=== PATIENT | female | born 1990 | race Caucasian/White ===

== ENCOUNTER 2016-03-28 23:57 | Emergency (ER) | payer OTHER ==
[~2016-03-28] VITALS: Ht 157.5 cm; Wt 68.5 kg
[~2016-03-28 23:57] MED LIST: IBUP-1542 PO
[2016-03-29 00:32] VITALS: Ht 157.5 cm; Wt 68.5 kg
[2016-03-29] MEDS ORDERED: SOD CHLORIDE 0.9% 500 ML IV STA (01:41)
--- NOTE | 2016-03-29 02:03 | RADRPT ---
PROCEDURE: XR Chest. CLINICAL INDICATION: Abdominal Pain TECHNIQUE: Single frontal view of the chest was obtained COMPARISON: CT and plain film examinations of the chest dated 03/17/2015. 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 This was id entified on the prior examinations dated 03/17/2015. The heart and mediastinum are within normal limits. The lungs are clear. There is no pleural effusion or pneumothorax. IMPRESSION: No acute disease. RPTAT: [facility] Physician Jenaro Date Time Electronically viewed and signed by Physician Jenaro on 03/29/2016 02:02 RS/
[2016-03-29 02:30] LABS: ALBUMIN 3.6 g/dl (3.3-4.9)
[2016-03-29 02:31] LABS: CHLORIDE 103 mmol/L (97-110); POTASSIUM 3.6 mmol/L (3.5-5.1); SODIUM 138 mmol/L (135-144)
[2016-03-29 02:33] LABS: ALBUMIN/GLOBULIN RATIO 1.05; ALKALINE PHOSPHATASE 127 IU/L (42-121); ANION GAP 16 (8-16); ASPARTATE AMINO TRANSFERASE 19 IU/L (15-46); BILIRUBIN,INDIRECT 0.2 mg/dl (0-1.1); BILIRUBIN,TOTAL 0.2 mg/dl (0.2-1.3); CARBON DIOXIDE 23 mmol/L (21-31); CREATININE 0.38 mg/dl (0.44-1.00)
[2016-03-29 02:34] LABS: ALANINE AMINOTRANSFERASE 23 IU/L (13-69); BLOOD UREA NITROGEN 8 mg/dl (7-20); CALCIUM 8.9 mg/dl (8.4-10.2); GLUCOSE 83 mg/dl (70-220)
[2016-03-29 02:43] LABS: BASOPHILS % 0.4 % (0.0-2.0); EOSINOPHILS # 0.1 10^3/ul (0.0-0.5); EOSINOPHILS % 1.1 % (0.0-7.0); HEMATOCRIT 36.5 % (37.0-47.0); HEMOGLOBIN 12.3 g/dl (12.0-16.0); LYMPHOCYTES # 2.1 10^3/ul (0.8-2.9); LYMPHOCYTES % 19.9 % (15.0-51.0); MEAN CORPUSCULAR HGB CONC 33.7 g/dl (32.0-37.0); MEAN PLATELET VOLUME 10.3 fl (7.4-10.4); MONOCYTE # 0.8 10^3/ul (0.3-0.9); MONOCYTES % 7.2 % (0.0-11.0); NEUTROPHIL # 7.5 10^3/ul (1.6-7.5); NEUTROPHILS % 70.6 % (39.0-77.0); PLATELET COUNT 323 10^3/UL (140-440); WHITE BLOOD COUNT 10.7 10^3/ul (4.8-10.8)
[2016-03-29 02:47] LABS: TROPONIN-I < 0.012 ng/ml (0.00-0.12)
--- NOTE | 2016-03-29 04:07 | ERD ---
ER Documentation Chief Complaint Date/Time DATE: 03/29/16 TIME: 04:04 Chief Complaint CP and leg cramps called Dr. Vences and is aware of 30 wks HPI 25-year-old man who is just over 30 weeks by previously, firm normal ultrasound presents with intermittent sharp nonexertional nonradiating chest pain and shortness of breath. She states symptoms are worse at night when she lays flat although during the day while at work sometimes she stands for over 8 hours and feels weak. She denies unilateral calf swelling or redness, no fevers or chills, no cough, no headache or blurry vision, no paresis or paresthesias. Prior to ED arrival she did see her vegetable sorter who cleared her obstetrically. She denies vaginal bleeding or dysuria, no abdominal pain or cramping no vaginal discharge. 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 Anesthesia Reaction: No Hx Neurological Disorder: No Hx Respiratory Disorders: No Hx Cardiac Disorders: Yes (congenital heart disease) Hx Psychiatric Problems: No Hx Miscellaneous Medical Probl: No Hx Alcohol Use: No Hx Substance Use: No Hx Tobacco Use: No Smoking Status: Never smoker FmHx Family History: No diabetes Physical Exam Vitals Vital Signs Date Time Temp Pulse Resp B/P Pulse Ox O2 Delivery O2 Flow Rate FiO2 03/29/16 04:58 99.0 85 14 96/65 99 Room Air 03/29/16 03:00 68 15 92/63 98 Room Air 03/29/16 00:32 98.0 89 18 105/68 98 Physical Exam GENERAL: Well-developed, well-nourished, well-hydrated, in no apparent distress , looks nontoxic in appearance HEENT: Moist mucous membranes, pink conjunctiva, no cervical spine tenderness or step-off deformities, no goiter, no jaundice or icterus, extraocular movements intact without pain. No submandibular induration, and no pharyngeal erythema NEURO: Alert and oriented 3, cranial nerves II through XII intact bilaterally, pupils equal round reactive to light, no focal deficits or facial asymmetry, sensation intact distally Strength 5/5 in upper and lower extremities bilaterally CARDIAC: Regular rate and rhythm, no murmurs rubs or gallops LUNGS: Clear bilaterally no wheezing crackles or stridor ABDOMEN: Soft nontender, no guarding, no rigidity, no rebound, no psoas sign no obturator sign. Normoactive bowel sounds SKIN: Warm and dry to touch, no abrasions, contusions, or hematomas, no lacerations, no ecchymosis, no target lesions, and without ulcers EXTREMITIES: No clubbing cyanosis, 1+ pitting edema to the feet bilaterally, calves are bilaterally symmetrical, no Homans sign, no popliteal cord sign. Distal pulses equal and bilateral PSYCH: Normal affect without agitation or irritability Result Diagram: 03/29/1620403/29/16 0205 Results 24 hrs Laboratory Tests Test 03/29/16 02:05 Alanine Aminotransferase (ALT/SGPT) 23IU/L Albumin 3.6g/dl Albumin/Globulin Ratio 1.05 Alkaline Phosphatase 127IU/L Anion Gap 16 Aspartate Amino Transf (AST/SGOT) 19IU/L Basophils # 0.010^3/ul Basophils % 0.4% Blood Urea Nitrogen 8mg/dl Calcium Level 8.9mg/dl Carbon Dioxide Level 23mmol/L Chloride Level 103mmol/L Creatinine 0.38mg/dl Direct Bilirubin 0.00mg/dl Eosinophils # 0.110^3/ul Eosinophils % 1.1% Globulin 3.40g/dl Glucose Level 83mg/dl Hematocrit 36.5% Hemoglobin 12.3g/dl Indirect Bilirubin 0.2mg/dl Lipase 76U/L Lymphocytes # 2.110^3/ul Lymphocytes % 19.9% Mean Corpuscular Hemoglobin 30.0pg Mean Corpuscular Hemoglobin Concent 33.7g/dl Mean Corpuscular Volume 89.0fl Mean Platelet Volume 10.3fl Monocytes # 0.810^3/ul Monocytes % 7.2% Neutrophils # 7.510^3/ul Neutrophils % 70.6% Nucleated Red Blood Cells # 0.010^3/ul Nucleated Red Blood Cells % 0.0/100WBC Platelet Count 16204^3/UL Potassium Level 3.6mmol/L Red Blood Count 4.1010^6/ul Red Cell Distribution Width 12.0% Sodium Level 138mmol/L Total Bilirubin 0.2mg/dl Total Protein 7.0g/dl Troponin I < 0.012ng/ml White Blood Count 10.710^3/ul Current Medications Medications (Trade) Dose Ordered Sig/Gary Route PRN Reason Start Time Stop Time Status Last Admin Dose Admin Sodium Chloride (NS) 500 ml @ 500 mls/hr Q1H STAT IV 03/29/16 01:41 03/29/16 02:40 DC 03/29/16 02:10 Procedures/MDM IV line was established patient was placed on rn cardiac rehab rhythm strip revealed a sinus rhythm at about 80 bpm with upright P and T waves. Patient was afebrile. I administered 500 cc of normal saline intravenously. EKG performed, read by me: 79 bpm, normal sinus rhythm, normal axis, no acute ST segment changes, narrow QRS complex, with good R-wave progression in precordial leads. Chest X-ray 1V Interpreted by me: Soft Tissue: No acute abnormalities Bones: No acute abnormalities Mediastinum/Cardiac Silhouette/Lungs: No acute abnormalities Patient's symptoms did improve and they are fairly common in third trimester , especially when lying supine as the fetus impinges the IVC causing shortness of breath palpitations, and intermittent chest pain. I do not suspect that her anomalous pulmonary vein anastomosis to the IVC this causing any serious issue. Patient has been cleared from the emergency department and will follow up with her vegetable sorter later today. Patient feels much better at this time, and vital signs are normal, symptoms have improved. I did give strict instructions to return to the ED if symptoms continue or worsen, patient will otherwise follow-up with primary care physician. Patient understood instructions and agreed to plan. Departure Diagnosis: Primary Impression: Third trimester Additional Impressions: Chest pain Chest pain type: unspecified Qualified Code: R07.9 - Chest pain, unspecified type Anomalous pulmonary venous drainage to abdominal inferior vena cava Condition: Good VERONICA LIZAMA MD Mar 29, 2016 04:07
[2016-03-29 04:58] VITALS: BP 96/65; PULSE 85; RESP 14; TEMP 99
== END 2016-03-29 04:58 | disposition home or self-care (01) ==
LOC: E/R 23:57
DX: O99.89 Other specified diseases and conditions complicating pregnancy, childbirth and the puerperium (principal); R07.9 Chest pain, unspecified; Q26.9 Congenital malformation of great vein, unspecified; Z3A.30 30 weeks gestation of pregnancy
CPT/HCPCS: 36415; 71010; 80053; 83690; 84484; 85025; 93005; 96360; 96361; 99284; J7040

== ENCOUNTER 2016-05-25 02:31 | Inpatient (IN) | payer OTHER ==
[~2016-05-25] VITALS: Ht 162.6 cm; Wt 73.5 kg
[2016-05-25] VITALS (8 sets, daily range): BP systolic 80–110; BP diastolic 38–67; PULSE 69–92; RESP 15–20; Ht 162.6 cm; Wt 73.5 kg
[2016-05-25] MEDS ORDERED: OXYTOCIN 30 UNITS/LR 500 ML IV SCH ×3 (03:30→16:30)
[2016-05-25] MEDS ORDERED: MISOPROSTOL 200 MCG TAB PR PRN (03:30)
[2016-05-25] MEDS ORDERED: OXYTOCIN 30 UNITS/LR 500 ML IV PRN (03:30)
[2016-05-25] MEDS ORDERED: ACETAMINOPHEN/CODEINE #3 TAB PO PRN (03:30)
[2016-05-25] MEDS ORDERED: LIDOCAINE 1% (MPF) 30 ML INJ INJ PRN (03:30)
[2016-05-25] MEDS ORDERED: LACTATED RINGER'S 1,000 ML IV PRN (03:30)
[2016-05-25] MEDS ORDERED: METHYLERGONOVINE 0.2 MG INJ IM PRN (03:30)
[2016-05-25] MEDS ORDERED: BUTORPHANOL 2 MG INJ IV PRN ×2 (03:30)
[2016-05-25] MEDS ORDERED: AMPICILLIN 2 GM/NS (PMX) 100 ML IV ONE (03:30)
[2016-05-25] MEDS ORDERED: CARBOPROST 250 MCG INJ IM PRN (03:30)
[2016-05-25] MEDS ORDERED: IBUPROFEN 600 MG TAB PO PRN (03:30)
[2016-05-25 03:56] LABS: ADD SCAN DIFF NO
[2016-05-25 04:12] LABS: BASOPHILS % 0.2 % (0.0-2.0); EOSINOPHILS % 0.1 % (0.0-7.0); HEMATOCRIT 35.1 % (37.0-47.0); HEMOGLOBIN 11.5 g/dl (12.0-16.0); LYMPHOCYTES # 1.2 10^3/ul (0.8-2.9); LYMPHOCYTES % 9.7 % (15.0-51.0); MEAN CORPUSCULAR HEMOGLOBIN 28.7 pg (29.0-33.0); MEAN CORPUSCULAR HGB CONC 32.8 g/dl (32.0-37.0); MEAN CORPUSCULAR VOLUME 87.5 fl (82.0-101.0); MEAN PLATELET VOLUME 10.9 fl (7.4-10.4); MONOCYTE # 0.6 10^3/ul (0.3-0.9); NEUTROPHIL # 10.6 10^3/ul (1.6-7.5); NEUTROPHILS % 84.6 % (39.0-77.0); PLATELET COUNT 324 10^3/UL (140-415); RED BLOOD COUNT 4.01 10^6/ul (4.20-5.40); RED CELL DISTRIBUTION WIDTH 12.6 % (11.5-14.5); WHITE BLOOD COUNT 12.5 10^3/ul (4.8-10.8)
--- NOTE | 2016-05-25 04:50 | RADRPT ---
PROCEDURE: Obstetrical ultrasound, limited. CLINICAL INDICATION: Pelvic pain. TECHNIQUE: Multiple sonographic images of the pelvis were obtained using transabdominal technique . Images were obtained with lockhart scale and color Doppler. The images were reviewed on a PACS works tation. COMPARISON: No prior studies are available for comparison. FINDINGS: There is a single living intrauterine gestation with the fetus in a vertex presentation. hear t tones of 150 beats per minute are identified. The placenta is left lateral in location, grade 2. There is no evidence of placenta previa or abruption. Measurements were made in order to determine age. The results are as follows: BPD =8.60 cm HC =32.37 cm AC =31.16 cm FL =7.21 cm. Estimated gestational age of approximately 35 weeks and 6 days. The estimated date of delivery is 06/23/2016. The EFW = 2744 +/- 412 grams. Estimated weight percentage equals 4.6%. IMPRESSION: Single viable intrauterine gestation of approximately 35 weeks and 6 days, with an ultrasound DUTCH of 06/23/2016. .Hollis Self MD, MD Date Time Electronically viewed and signed by .Hollis Self MD, MD on 05/25/2016 04:49 .T/
[2016-05-25] MEDS: LACTATED RINGER'S 1,000 ML IV SCH ×3 (04:55→12:49)
[2016-05-25] MEDS ORDERED: FENTAnyl 2MCG/ML-ROPIV 0.2% 100 ML ONE (05:18)
[2016-05-25 05:28] LABS: INR 0.95; PROTIME 12.7 Sec (12.2-14.2)
[2016-05-25 05:29] LABS: PARTIAL THROMBOPLASTIN TIME 27.4 Sec (25.0-35.0)
--- NOTE | 2016-05-25 07:02 | HP ---
Date/Time of Note Date/Time of Note DATE: 05/25/16 TIME: 06:42 OB - History Hx of Present Free Text/Dictation 25 y.o. G1 with an IUP at 39 w2d in labor and with a history of maternal Scimitar syndrome. Pt started donald at 2200 05/24. She is 90%/3/-3 on admit. Pt was 50%/1/-3 24 hours ago at [facility]. Pt has been traveling twice a week to [facility] (?!) due to her lung/heart anomaly but did not feel up to the [address]. Pt says she has been going there x 4 weeks and was told by Dr Lagunas ( a perinatologist or clean out driller helper?) that she was OK to deliver vaginally with Valsalva and that is referenced in a note written by a M fellow yesterday morning but we do not have the actual note.Pt denies any chest pain or SOB at this time. Last pt ECHO 05/05 showed: normal left ventricular systolic function, EF 65%, TOTAL anomalous pulmonary venous return with pulmonary waveform tracings entering the IVC. Right atrium is mild-moderately dilated and there was normal right ventricular size and systolic function. Normal diastolic LV function. EKG done yesterday AM normal. PMHx: maternal Scimitar syndrome. PSHx: masses removed from the left arm age 8. Social Hx: negative. NKDA Chief Complaint: Labor. Maternal Scimitar syndrome. Last Menstrual Period: Aug 23, 2015 Estimated Due Date: May 30, 2016 : 1 Para: 0 Spontaneous : 0 Therapeutic : 0 Ultrasounds: Normal mid trimester US Obstetrical Complications: None Medical Complications: Cardiovascular (Scimitar syndrome.) Past Family/Social History * Past Medical, Surgical, Family and Obstetric Histories reviewed from chart. Blood Type: A+ Rubella: immune RPR/VDRL: Negative GBS Status: Negative HBsAG: Negative OB Admission Exam Vital Signs Vital Signs Vital Signs Date Time Temp Pulse Resp B/P Pulse Ox O2 Delivery O2 Flow Rate FiO2 05/25/16 02:49 98.3 81 20 110/60 Room Air Physical Exam HEENT: WNL Heart: Rhythm Normal Lungs: Clear Extremities: Normal Reflexes: Normal Cervical Dilatation: 3cm Effacement: Other (90%) Station: -3 Membranes: Intact Heart Rate: 140's Accelerations: Accelerations Present Decelerations: No Decelerations Varibility: Moderate Contractions on Admission: < 5 Minutes Apart Last 72 hours Lab Results CBC & BMP 05/25/16 03:40 OB Assessment/Plan Reason for admission: active labor Other Assessment: Maternal Scimitar syndrome. Plan: Expectant Management Other plan: Perinatology consult. Need to get actual report written by Dr Lagunas at [facility] who has evaluated this pt the most. Baby/Mom OK at present but need to evaluate for ability to safely deliver at [facility]. Mom has epidural to comfortable, non-stressed. ELVIRA ALMARAZ MD May 25, 2016 06:56
[2016-05-25 07:42] LABS: BARBITURATES Negative (NEGATIVE); BENZODIAZEPINES Negative (NEGATIVE); CANNABINOIDS Negative (NEGATIVE); COCAINE Negative (NEGATIVE); OPIATES Negative (NEGATIVE)
[2016-05-25] MEDS: AMPICILLIN 1 GM/NS (PMX) 50 ML IV SCH ×3 (07:51→15:30)
[2016-05-25] MEDS ORDERED: OXYTOCIN 10 UNIT INJ IM ONE (11:00)
[2016-05-25 11:19] LABS: ADD UMIC YES; URINE BILIRUBIN (Dip) NEGATIVE (NEGATIVE); URINE BLOOD (Dip) 1+ (NEGATIVE); URINE COLOR YELLOW (YELLOW); URINE GLUCOSE (Dip) NEGATIVE (NEGATIVE); URINE KETONES (Dip) 40 (NEGATIVE); URINE LEUKOCYTE ESTERASE (Dip) NEGATIVE (NEGATIVE); URINE NITRITE (Dip) NEGATIVE (NEGATIVE); URINE TOTAL PROTEIN (Dip) 2+ (NEGATIVE); URINE UROBILINOGEN (Dip) 1.0 E.U./dL (0.1-1.0)
[2016-05-25 11:26] LABS: ALBUMIN 3.6 g/dl (3.3-4.9)
[2016-05-25 11:27] LABS: POTASSIUM 3.7 mmol/L (3.5-5.1)
[2016-05-25 11:29] LABS: BILIRUBIN,INDIRECT 0.3 mg/dl (0-1.1); BILIRUBIN,TOTAL 0.3 mg/dl (0.2-1.3); CALCIUM 8.8 mg/dl (8.4-10.2); CREATININE 0.42 mg/dl (0.44-1.00); TOTAL PROTEIN 7.2 g/dl (6.1-8.1)
[2016-05-25 11:32] LABS: MUCUS,URINE MODERATE
[2016-05-25] MEDS ORDERED: ONDANSETRON 4 MG INJ IV PRN (13:00)
[2016-05-25] MEDS ORDERED: NALOXONE (0.4 MG/ML) INJ IV PRN (13:00)
[2016-05-25] MEDS ORDERED: FENTAnyl 2MCG/ML-ROPIV 0.2% 100 ML BAG EPI SCH (13:00)
[2016-05-25] MEDS ORDERED: EPHEDrine SULFATE 50 MG/5 ML SYG IV PRN (13:00)
--- NOTE | 2016-05-25 13:34 | OPR ---
DATE OF OPERATION: NEONATOLOGY CONSULTATION REQUESTING PHYSICIAN: Dr. Grullon, ER panel REASON FOR CONSULTATION: The mother has scimitar syndrome which is partial abnormal pulmonary venou s return syndrome. Her gestation is 39 and 2/7 weeks. The baby's estimated weight is 2744 g. There is no echocardiogram on file of the baby. Abnormal pulmonary venous return. If it is total abnormal return, of course is in the daisy gency, requiring management and transferred to a pediatric cardiology and surgery center. If it is an abnormal partial venous return, this may be asymptomatic or with limited symptoms or totally asym ptomatic as it also was for many years in his mother. Evaluation in the delivery room and shortly after with pulse oximetry is indicated, and a ches t x-ray and an echocardiogram can be done. If the baby is stable in the delivery room, no immediate need for admission to the intensive care is needed. I have spoken extensively to the parents and they understand the approach and plans, and they agree with the taken and plan. Thank you very much for consulting me and alerting me on this baby's possible condition. Dictated By: REJI CAMPUZANO/JANA Conf#: [id number] DID#: [id number]
--- NOTE | 2016-05-25 15:08 | CONS ---
Date/Time of Note Date/Time of Note DATE: 05/25/16 TIME: 14:57 Assessment/Plan Assessment/Plan Chief Complaint/Hosp Course 1. 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 IUP @ 39+ weeks: in active labor RECOMMENDATIONS: * Continue routine active labor mgt as indicated * Agree with limiting fluids as much as safely possible * Cardiology consultation obtained with Dr Roberts to assist in mgt * Telemetry obs post delivery * Very low fluid bolus 250-500mls of NS for low urine output * Supportive care Thanks for the Consult. We will follow with you. Problems: Consultation Date/Type/Reason Admit Date/Time May 25, 2016 at 03:10 Date of Consultation: May 25, 2016 Type of Consultation: Medical Reason for Consultation congenital heart disease Referring Provider: TAD SANTIAGO MD Hx of Present Illness 25 yo F G1 with a PMH of Scimitar's Syndrome managed at [facility] who came in via ER in active labor. WE are consulted for medical mgt and followup 2/2 her chronic heart condition. Patient reports her only symptoms are those of airway inflammation intermittently diann in the summer months as evidenced by chest pain , SOB and wheezing and these symptoms are usually relieved with the use of bronchodilator therapy. She hasn't had an episode in months. She denies active CP at this time, denies headaches, nausea or vomiting. has never had CHF or arrhythmias associated with this to her knowledge. 12 point review if systems was done and pertinent findings are as noted. Respiratory: no complaints Cardiovascular: no complaints Gastrointestinal: no complaints Genitourinary: no complaints Musculoskeletal: no complaints Skin: no complaints Neurologic: No confusion, No dizziness, No focal-weakness, No headache, No seizure, No syncope Psychological: nl mood/affect Social History Smoking Status: Never smoker Exam/Review of Systems Vital Signs Vitals VS - Last 72 Hours, by Label Date Time Temp Pulse Resp B/P Pulse Ox O2 Delivery O2 Flow Rate FiO2 05/25/16 02:49 98.3 81 20 110/60 Room Air Vital Signs Date Time Temp Pulse Resp B/P Pulse Ox O2 Delivery O2 Flow Rate FiO2 05/25/16 02:49 98.3 81 20 110/60 Room Air Intake and Output 05/24/16 05/24/16 05/25/16 15:00 23:00 07:00 Intake Total 650 ml Balance 650 ml Exam GENERAL: Patient is alert, oriented x 3, in no apparent distress; does not appear acutely or chronically ill. Patient is able to sit up unassisted.Patient makes good eye contact, is conversant, interactive, coherent. Patient appears calm and comfortable and is able to follow commands. HEENT: Oropharynx is clear. There is no carotid bruit, no masses. Patient's pupils are equal, round and reactive to light bilaterally. Extraocular motions are intact. There is no scleral icterus. There is no facial asymmetry. NECK: Supple. LUNGS: Clear to auscultation bilaterally with good air entry. No Wheezes or crackles. HEART: S1, S2. ?Systolic murmur 2/6. Regular rate and rhythm. ABDOMEN: gravid uterus connected to monitor / NT BACK: no costovertebral angle tenderness. GENITOURINARY: Deferred. EXTREMITIES: No edema. There is no cyanosis, clubbing. There are 2+ pulses bilaterally distally. NEUROLOGIC: The patient has no lateralizing signs. Cranial nerves II-XII are intact. SKIN: Otherwise, unremarkable. Results Result Diagram: 05/25/16 0340 05/25/16 0340 Results 24 hrs Laboratory Tests Test 05/25/16 03:40 05/25/16 04:05 05/25/16 06:50 White Blood Count 12.5 H Red Blood Count 4.01 L Hemoglobin 11.5 L Hematocrit 35.1 L Mean Corpuscular Volume 87.5 Mean Corpuscular Hemoglobin 28.7 L Mean Corpuscular Hemoglobin Concent 32.8 Red Cell Distribution Width 12.6 Platelet Count 324 Mean Platelet Volume 10.9 H Neutrophils % 84.6 H Lymphocytes % 9.7 L Monocytes % 5.0 Eosinophils % 0.1 Basophils % 0.2 Nucleated Red Blood Cells % 0.0 Neutrophils # 10.6 H Lymphocytes # 1.2 Monocytes # 0.6 Eosinophils # 0.0 Basophils # 0.0 Nucleated Red Blood Cells # 0.0 Sodium Level 137 Potassium Level 3.7 Chloride Level 104 Carbon Dioxide Level 22 Anion Gap 15 Blood Urea Nitrogen 10 Creatinine 0.42 L Glucose Level 98 Calcium Level 8.8 Total Bilirubin 0.3 Direct Bilirubin 0.00 Indirect Bilirubin 0.3 Aspartate Amino Transf (AST/SGOT) 21 Alanine Aminotransferase (ALT/SGPT) 16 Alkaline Phosphatase 170 H Total Protein 7.2 Albumin 3.6 Globulin 3.60 H Albumin/Globulin Ratio 1.00 Hepatitis B Surface Antigen NEGATIVE HIV (1&2) Antibody NEGATIVE Prothrombin Time 12.7 Prothrombin Time Ratio 1.0 INR International Normalized Ratio 0.95 Activated Partial Thromboplast Time 27.4 Urine Color YELLOW Urine Clarity HAZY Urine pH 6.5 Urine Specific [place] 1.025 Urine Ketones 40 Urine Nitrite NEGATIVE Urine Bilirubin NEGATIVE Urine Urobilinogen 1.0 E.U./dL Urine Leukocyte Esterase NEGATIVE Urine Microscopic RBC 10-25 Urine Microscopic WBC 0-2 Urine Mucus MODERATE Urine Hemoglobin 1+ H Urine Glucose NEGATIVE Urine Total Protein 2+ H Urine Opiates Screen Negative Urine Barbiturates Negative Urine Amphetamines Screen Negative Urine Benzodiazepines Screen Negative Urine Cocaine Screen Negative Urine Cannabinoids Negative Medications Medications Current Medications Lactated Ringer's 1,000 ml @ 125 mls/hr Q8H IV Last administered on 05/25/16 12:49; Admin Dose 125 MLS/HR; Start 05/25/16 at 03:20 Ampicillin (Ampicillin 1 Gm/ NS (Pmx)) 50 ml @ 100 mls/hr Q4H IV Last administered on 05/25/16 07:51; Admin Dose 100 MLS/HR; Start 05/25/16 at 07:30 Butorphanol Tartrate (Stadol) 1 mg Q2H PRN IV PAIN; Start 05/25/16 at 03:30 Butorphanol Tartrate (Stadol) 2 mg Q2H PRN IV PAIN; Start 05/25/16 at 03:30 Lidocaine 30 ml 30 ml ONCE PRN INJ EPISIOTOMY/TEARING; Start 05/25/16 at 03:30 Oxytocin/Lactated Ringer's 500 ml @ 125 mls/hr ONCE IV ; Start 05/25/16 at 03: 30 Ibuprofen (Motrin) 600 mg ONCE PRN PO Mild Pain (Pain Score 1-3); Start at 03:30 Acetaminophen/ Codeine Phosphate 2 tab 2 tab ONCE PRN PO Moderate to Severe Pain (4-10); Start 05/25/16 at 03:30 Lactated Ringer's 1,000 ml @ 2,000 mls/hr Q30M PRN IV PRE-EPIDURAL BOLUS; Start 05/25/16 at 03:30 Oxytocin/Lactated Ringer's 500 ml @ 0 mls/hr ONCE PRN IV For Hemorrhage Management; Start 05/25/16 at 03:30 Methylergonovine Maleate (Methergine) 0.2 mg ONCE PRN IM VAGINAL BLEEDING; Start 05/25/16 at 03:30 Carboprost Tromethamine (Hemabate) 250 mcg ONCE PRN IM VAGINAL BLEEDING; Start 05/25/16 at 03:30 Misoprostol (Cytotec) 1,000 mcg ONCE PRN MS VAGINAL BLEEDING; Start 05/25/16 at 03:30 Naloxone HCl (Narcan) 0.1 mg Q2M PRN IV FOR RESP RATE 8 OR LESS; Start at 13:00; Stop 05/26/16 at 12:59 Ondansetron HCl (Zofran Inj) 4 mg Q6H PRN IV NAUSEA AND/OR VOMITING; Start at 13:00; Stop 05/26/16 at 12:59 Ephedrine Sulfate 5 mg PRN PRN IV BLOOD PRESSURE SUPPORT; Start 05/25/16 at 13: 00 Procedures Procedures Echo : * normal left ventricular systolic function, * EF 65% * TOTAL anomalous pulmonary venous return with pulmonary waveform tracings entering the IVC. * Right atrium is mild-moderately dilated and there was normal right ventricular size and systolic function. * Normal diastolic LV function. EKG done yesterday AM normal. DAMON AKHTAR May 25, 2016 15:08
[2016-05-25 18:05] LABS: AADO2 Cord Arterial 73.1 mmHg; Arterial Cord Blood pCO2 54.7 mmHG (25-50); CBA Base Excess -2.6 mmol/L; CBA Oxygen Sat 15.5 mmHG; CBA Total Hemglobin 16.1 g/dl; Cord Blood Arterial pO2 11.1 mmHG (15.0-45.0); Fraction OxyHgb Cord Arterial 15.1 %; MODE ROOM AIR; MetHgb Cord Arterial 2.1 %; Sample Type CBA
[2016-05-25 18:08] LABS: CBV Base Excess -3.9 mmol/L; CBV COHb 1.5 %; CBV Oxygen Sat 42.4 mmHG; CBV Total Hemglobin 15.3 g/dl; Cord Blood Venous AADO2 75.1 mmHg; Cord Blood Venous pO2 19.8 mmHG (15.0-45.0); Fraction OxyHgb Cord Venous 41.1 %; MODE ROOM AIR; MetHgb Cord Venous 1.6 %; Sample Type CBV
--- NOTE | 2016-05-25 18:40 | LDN ---
Date/Time of Note Date/Time of Note DATE: 05/25/16 TIME: 18:37 Delivery Summary pt pushed and vacuum applied to avoid excessive maternal pushing. infant delivered and head delivered without complications. CAN loose x1. cord gases and cord blood taken. placenta delivered withour complications. mom stable to icu. Assisted Vaginal Delivery: Vacuum Placenta Delivered: Spontaneously Meconium: none Episiotomy: No Laceration repair: 2nd degree lacerations repaired with 2-0 vicryl Anesthesia type: Epidural Estimated blood loss: 350 Sponge & Needle done & correct: Yes All needle counts correct: Yes Any foreign bodies felt in the: No Problems: TAD SANTIAGO MD May 25, 2016 18:39
--- NOTE | 2016-05-25 20:24 | CONS ---
DATE OF ADMISSION: 05/25/2016 DATE OF CONSULTATION: 05/25/2016 TYPE OF CONSULTATION: Cardiology. REASON FOR CONSULTATION: History of congenital heart disease, history of scimitar syndrome. CHIEF COMPLAINT: . HISTORY OF PRESENT ILLNESS: Thank you for this referral. History obtained from the patient, danika ellington review of the chart, review of the old chart, including the patient's old echocardiogram reviewe d from [facility], and discussion with multiple physicians and staff, including Dr. Akhtar. This 25-year-old female with history of scimitar syndrome, apparently diagnosed 4 years ago by her report, managed at [facility] who came to emergency room because of active labor. The patient we were kindly asked to evalua te because of her congenital heart disease. The patient at this point denies any chest pain or pres sure to me. She has been admitted and will be transferred to ICU post-delivery. She said when she was young she was having chest, difficulty breathing when she was exercising, up to 4 years ago when she was diagnosed with the scimitar syndrome. PAST MEDICAL HISTORY: As above. SOCIAL HISTORY: Does not smoke. ALLERGIES: NO KNOWN DRUG ALLERGIES. MEDICATIONS: As per medical reconciliation, reviewed. FAMILY HISTORY: Denies any history of early coronary artery disease. REVIEW OF SYSTEMS: As above mentioned. PHYSICAL EXAMINATION: VITAL SIGNS: Temperature 98.3, heart rate of 69, blood pressure 101/66, respiration rate of 15, sat urating 99%. HEENT: Normocephalic, atraumatic. No acute distress. Pupils equal and round. CARDIOVASCULAR: Regular rate and rhythm with systolic murmur. PULMONARY: With no wheezes anteriorly. GASTROINTESTINAL: Mild tenderness to palpation. No rebound or guarding. EXTREMITIES: No significant edema. NEUROLOGIC: Awake, responds appropriately. PSYCHIATRIC: Appears to be calm and pleasant. LABORATORY DATA: WBC of 12.5, hemoglobin 11.5, platelets of 324. Sodium 137, potassium 3.7, BUN of 10, creatinine 0.42, glucose of 98. Albumin is 3.6. Review of the old chart showed the patient had an echocardiogram done on 05/05/2016 at [facility], which sh owed normal LV size and systolic function, ejection fraction of 65%. There is a total anomalous pul monary venous return with pulmonary waveform tracing entering into the IVC. The right atrium is mil d to moderately dilated and normal right ventricular size and systolic function. Normal to diastoli c LV systolic function. Estimated right ventricular systolic pressure was normal at 22 mmHg. ASSESSMENT AND PLAN: 1. Scimitar syndrome. 2. History of class 2 congestive heart failure, currently appears to be well compensated. 3. , status post delivery now. 4. Anemia. RECOMMENDATIONS: Will continue to monitor in ICU overnight. At this time, patient currently appear s to be asymptomatic. Post-vaginal delivery care as per LIFT MANAGER to be continued. More than 38 minutes of critical care time was spent in management of this patient excluding any pro cedures. Dictated By: KENNY MADDEN MD AV/NTS Conf#: [id number] DID#: [id number] CC: ELVIRA ALMARAZ MD; DAMON AKHTAR MD;*EndCC*
[2016-05-26] VITALS (18 sets, daily range): BP systolic 84–110; BP diastolic 52–75; PULSE 70–91; RESP 15–22
[2016-05-26] MEDS ORDERED: WITCH HAZEL/GLYCERIN PAD PR PRN (12:00)
--- NOTE | 2016-05-26 12:41 | PN ---
Date/Time of Note Date/Time of Note DATE: 05/26/16 TIME: 12:38 Assessment/Plan VTE Prophylaxis VTE Prophylaxis Intervention: SCD's Lines/Catheters IV Catheter Type (from Nrsg): Peripheral IV Urinary Cath still in place: Yes Reason Cath still needed: other (indicate) Assessment/Plan Chief Complaint/Hosp Course 1. 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 IUP @ 39+ weeks s/p successful delivery (Post delivery day 1) RECOMMENDATIONS: * Continue routine post delivery mgt * OK to transfer back to post floor if ok with cardio * Supportive care Thanks for the Consult. We will follow with you. Problems: Subjective 24 Hr Interval Summary Free Text/Dictation * doing well * Mild abd pain from delivery * No telemetry issues * no labs today yet Exam/Review of Systems Vital Signs Vitals Vital Signs Date Time Temp Pulse Resp B/P Pulse Ox O2 Delivery O2 Flow Rate FiO2 05/26/16 08:00 72 05/26/16 07:00 98.2 17 84/53 100 Room Air Intake and Output 05/25/16 05/25/16 05/26/16 15:00 23:00 07:00 Intake Total 1120 ml 503 ml 497 ml Output Total 800 ml 100 ml Balance 1120 ml -297 ml 397 ml Exam GENERAL: Patient is alert, oriented x 3, in no apparent distress; does not appear acutely or chronically ill. Patient is able to sit up unassisted.Patient makes good eye contact, is conversant, interactive, coherent. Patient appears calm and comfortable and is able to follow commands. HEENT: Oropharynx is clear. There is no carotid bruit, no masses. Patient's pupils are equal, round and reactive to light bilaterally. Extraocular motions are intact. There is no scleral icterus. There is no facial asymmetry. NECK: Supple. LUNGS: Clear to auscultation bilaterally with good air entry. No Wheezes or crackles. HEART: S1, S2. ?Systolic murmur 2/6. Regular rate and rhythm. ABDOMEN: soft, still sore from recent delivery, + BS BACK: no costovertebral angle tenderness. GENITOURINARY: Deferred. EXTREMITIES: No edema. There is no cyanosis, clubbing. There are 2+ pulses bilaterally distally. NEUROLOGIC: The patient has no lateralizing signs. Cranial nerves II-XII are intact. SKIN: Otherwise, unremarkable. Results Result Diagram: 05/25/16 0340 05/25/16 0340 Results 24 hrs Laboratory Tests Test 05/25/16 18:00 05/25/16 18:02 Blood Gas Specimen Source CBA CBV Arterial Blood Date Drawn 05/25/2016 5:55:28 PM 05/25/2016 5:55:00 PM Arterial Blood Gas Puncture Site CORD CORD Jeff Test N/A N/A Cord Blood Carboxyhemoglobin 0.3 1.5 Cord Arterial Blood pH 7.280 Cord Arterial Blood PCO2 54.7 H Cord Arterial Blood PO2 11.1 L Cord Arterial Blood HCO3 25.1 Cord Arterial Blood Base Excess -2.6 POC Cord Arterial Blood O2 Sat 15.5 Cord Arterial Blood Hemoglobin 16.1 Cord Arterial Blood Oxyhemoglobin 15.1 Cord Arterial Blood Methemoglobin 2.1 Blood Gas A-a O2 Differential 73.1 75.1 Blood Gas Temperature 37.0 37.0 Blood Gas Modality ROOM AIR ROOM AIR FiO2 21.0 21.0 Blood Gas Critical Value Read Back Teja LIVE RN Blood Gas Notified Whom CHUNG PADGETT WILLIAM Blood Gas Notified Time 05/25/2016 6:05:16 PM 05/25/2016 6:08:33 PM Cord Venous Blood pH 7.310 Cord Venous Blood PCO2 45.8 Cord Venous Blood PO2 19.8 Cord Venous Blood HCO3 22.5 Cord Venous Blood Base Excess -3.9 POC Cord Venous Blood Oxygen Sat 42.4 Cord Venous Blood Hemoglobin 15.3 Cord Venous Blood Oxyhemoglobin 41.1 Cord Venous Blood Methemoglobin 1.6 Medications Medications Current Medications Butorphanol Tartrate (Stadol) 1 mg Q2H PRN IV PAIN; Start 05/25/16 at 03:30 Butorphanol Tartrate (Stadol) 2 mg Q2H PRN IV PAIN; Start 05/25/16 at 03:30 Ibuprofen (Motrin) 600 mg ONCE PRN PO Mild Pain (Pain Score 1-3); Start at 03:30 Acetaminophen/ Codeine Phosphate (Tylenol No.3) 2 tab ONCE PRN PO Moderate to Severe Pain (4-10); Start 05/25/16 at 03:30 Methylergonovine Maleate (Methergine) 0.2 mg ONCE PRN IM VAGINAL BLEEDING; Start 05/25/16 at 03:30 Carboprost Tromethamine (Hemabate) 250 mcg ONCE PRN IM VAGINAL BLEEDING; Start 05/25/16 at 03:30 Ondansetron HCl (Zofran Inj) 4 mg Q6H PRN IV NAUSEA AND/OR VOMITING; Start at 13:00; Stop 05/26/16 at 12:59 DAMON AKHTAR May 26, 2016 12:41
[2016-05-26 12:56] LABS: ADD SCAN DIFF NO
[2016-05-26 12:58] LABS: BASOPHILS % 0.2 % (0.0-2.0); EOSINOPHILS # 0.1 10^3/ul (0.0-0.5); EOSINOPHILS % 0.8 % (0.0-7.0); HEMATOCRIT 31.4 % (37.0-47.0); HEMOGLOBIN 10.6 g/dl (12.0-16.0); LYMPHOCYTES % 14.2 % (15.0-51.0); MEAN CORPUSCULAR HEMOGLOBIN 29.6 pg (29.0-33.0); MEAN CORPUSCULAR HGB CONC 33.8 g/dl (32.0-37.0); MEAN CORPUSCULAR VOLUME 87.7 fl (82.0-101.0); MEAN PLATELET VOLUME 10.4 fl (7.4-10.4); MONOCYTE # 0.6 10^3/ul (0.3-0.9); MONOCYTES % 3.8 % (0.0-11.0); NEUTROPHIL # 11.5 10^3/ul (1.6-7.5); NEUTROPHILS % 80.6 % (39.0-77.0); PLATELET COUNT 257 10^3/UL (140-415); RED BLOOD COUNT 3.58 10^6/ul (4.20-5.40); RED CELL DISTRIBUTION WIDTH 12.9 % (11.5-14.5); WHITE BLOOD COUNT 14.3 10^3/ul (4.8-10.8)
[2016-05-26 13:09] LABS: POTASSIUM 3.5 mmol/L (3.5-5.1)
[2016-05-26 13:11] LABS: BILIRUBIN,INDIRECT 0.3 mg/dl (0-1.1); BILIRUBIN,TOTAL 0.3 mg/dl (0.2-1.3); CREATININE 0.41 mg/dl (0.44-1.00); TOTAL PROTEIN 6.3 g/dl (6.1-8.1)
[2016-05-26 13:12] LABS: CALCIUM 8.3 mg/dl (8.4-10.2); MAGNESIUM 1.8 mg/dl (1.7-2.5)
[2016-05-26 13:16] LABS: ALBUMIN/GLOBULIN RATIO 0.9
--- NOTE | 2016-05-26 15:57 | PN ---
DATE: 05/26/2016 CARDIOLOGY FOLLOWUP SUBJECTIVE: Discussed with the staff. The patient is feeling better. No chest pain or pressure. No palpitation. Breathing fine. Wants to go back to the regular OB floor so she can be with her ba by. MEDICATIONS: Reviewed. PHYSICAL EXAMINATION: VITAL SIGNS: Temperature 98.4, heart rate 79, blood pressure 98/60, respirations 19, saturating 100 %. HEENT: Normocephalic, atraumatic. No acute distress. CARDIOVASCULAR: Regular rate and rhythm. PULMONARY: No wheezes. GASTROINTESTINAL: Soft, mild tenderness to palpation. EXTREMITIES: No edema. NEUROLOGIC: Awake and alert. LABORATORY DATA: WBC 14.3, hemoglobin 10.6, platelets 257. Sodium 135, potassium 3.5, BUN 9, creat inine 0.41, glucose 112. ASSESSMENT AND PLAN: 1. Scimitar syndrome. 2. History of congestive heart failure class II, currently stable, asymptomatic. 3. status post delivery now. 4. Anemia appears to be stable. RECOMMENDATIONS: The patient appears to be stable to be transferred out of ICU. Postop care as per CARDIAC CATHETERIZATION TECHNOLOGIST. We will follow up p.r.n. Dictated By: KENNY CAMPUZANO/JANA Conf#: [id number] DID#: [id number]
[2016-05-26 17:02] LABS: RUBELLA ANTIBODY - IGG 1.34 index
--- NOTE | 2016-05-26 18:10 | PN ---
Date/Time of Note Date/Time of Note DATE: 05/26/16 TIME: 18:05 OB Subjective Subjective Subjective May 26, 2071 1 hospital visit This patient is a 25 years old at term who came to the hospital yesterday and delivered a healthy child the mother has scimitar syndrome which is a congenital anomaly of the pulmonary vein She did not have a any cardiopulmonary decompensation throughout the and today which is day 1 she is still doing well no evidence of any cardiac or pulmonary insufficiency She is afebrile Abdomen is soft Breasts are soft Nipples are intact Perineum is healing Moderate amount of lochia She is ambulatory [place] is also doing well She is a slightly any today her hemoglobin is 10.6 with hematocrit of 31.4 Laboratory Tests Test 05/26/16 12:45 White Blood Count 14.310^3/ul Red Blood Count 3.5810^6/ul Hemoglobin 10.6g/dl Hematocrit 31.4% Mean Corpuscular Volume 87.7fl Mean Corpuscular Hemoglobin 29.6pg Mean Corpuscular Hemoglobin Concent 33.8g/dl Red Cell Distribution Width 12.9% Platelet Count 13109^3/UL Mean Platelet Volume 10.4fl Neutrophils % 80.6% Lymphocytes % 14.2% Monocytes % 3.8% Eosinophils % 0.8% Basophils % 0.2% Nucleated Red Blood Cells % 0.0/100WBC Neutrophils # 11.510^3/ul Lymphocytes # 2.010^3/ul Monocytes # 0.610^3/ul Eosinophils # 0.110^3/ul Basophils # 0.010^3/ul Nucleated Red Blood Cells # 0.010^3/ul Sodium Level 135mmol/L Potassium Level 3.5mmol/L Chloride Level 102mmol/L Carbon Dioxide Level 23mmol/L Anion Gap 14 Blood Urea Nitrogen 9mg/dl Creatinine 0.41mg/dl Glucose Level 112mg/dl Calcium Level 8.3mg/dl Magnesium Level 1.8mg/dl Total Bilirubin 0.3mg/dl Direct Bilirubin 0.00mg/dl Indirect Bilirubin 0.3mg/dl Aspartate Amino Transf (AST/SGOT) 26IU/L Alanine Aminotransferase (ALT/SGPT) 17IU/L Alkaline Phosphatase 132IU/L Total Protein 6.3g/dl Albumin 3.0g/dl Globulin 3.30g/dl Albumin/Globulin Ratio 0.90 Current Medications Medications (Trade) Dose Ordered Sig/Gary Route PRN Reason Start Time Stop Time Status Last Admin Dose Admin Lactated Ringer's 1,000 ml @ 125 mls/hr Q8H IV 05/25/16 03:20 05/25/16 22:29 DC 05/25/16 12:49 Ampicillin 100 ml @ 100 mls/hr ONCE ONCE IV 05/25/16 03:30 05/25/16 04:29 DC 05/25/16 04:55 Ampicillin (Ampicillin 1 Gm/ NS (Pmx)) 50 ml @ 100 mls/hr Q4H IV 05/25/16 07:30 05/25/16 22:29 DC 05/25/16 07:51 Butorphanol Tartrate (Stadol) 1 mg Q2H PRN IV PAIN 05/25/16 03:30 Butorphanol Tartrate (Stadol) 2 mg Q2H PRN IV PAIN 05/25/16 03:30 Lidocaine 30 ml 30 ml ONCE PRN INJ EPISIOTOMY/TEARING 05/25/16 03:30 05/26/16 07:36 DC Oxytocin/Lactated Ringer's 500 ml @ 125 mls/hr ONCE -MAY REPEAT X1 IV 05/25/16 03:30 05/26/16 07:36 DC Oxytocin/Lactated Ringer's 500 ml @ 125 mls/hr ONCE IV 05/25/16 03:30 05/26/16 07:36 DC Ibuprofen (Motrin) 600 mg ONCE PRN PO Mild Pain (Pain Score 1-3) 05/25/16 03:30 Acetaminophen/ Codeine Phosphate 2 tab 2 tab ONCE PRN PO Moderate to Severe Pain (4-10) 05/25/16 03:30 Lactated Ringer's 1,000 ml @ 2,000 mls/hr Q30M PRN IV PRE-EPIDURAL BOLUS 05/25/16 03:30 05/26/16 07:36 DC Oxytocin/Lactated Ringer's 500 ml @ 0 mls/hr ONCE PRN IV For Hemorrhage Management 05/25/16 03:30 05/26/16 07:36 DC Methylergonovine Maleate (Methergine) 0.2 mg ONCE PRN IM VAGINAL BLEEDING 05/25/16 03:30 Carboprost Tromethamine (Hemabate) 250 mcg ONCE PRN IM VAGINAL BLEEDING 05/25/16 03:30 Misoprostol 1000 mcg 1,000 mcg ONCE PRN DC VAGINAL BLEEDING 05/25/16 03:30 05/26/16 12:06 DC Fentanyl/ Ropivacaine 100 ml @ ud STK-MED ONCE .ROUTE 05/25/16 05:18 05/25/16 05:19 DC Naloxone HCl (Narcan) 0.1 mg Q2M PRN IV FOR RESP RATE 8 OR LESS 05/25/16 13:00 05/26/16 12:05 DC Ondansetron HCl (Zofran Inj) 4 mg Q6H PRN IV NAUSEA AND/OR VOMITING 05/25/16 13:00 05/26/16 12:59 DC Fentanyl/ Ropivacaine 100 ml EPIDURAL INFUSION EPI 05/25/16 13:00 05/26/16 07:36 DC 05/25/16 12:50 Ephedrine Sulfate 5 mg 5 mg PRN PRN IV BLOOD PRESSURE SUPPORT 05/25/16 13:00 05/26/16 12:05 DC Oxytocin/Lactated Ringer's 500 ml @ 0 mls/hr Q0M IV 05/25/16 16:30 05/26/16 12:05 DC 05/25/16 16:29 Oxytocin (Oxytocin) 10 units ONCE ONCE IM 05/25/16 11:00 05/26/16 07:36 DC 05/25/16 17:45 Witch Reina/ Glycerin (Tucks Pads) 1 pad BEDSIDE MEDICATION PRN DC HEMORRHOID/EPISIOTMY PAIN 05/26/16 12:00 The also does not have any evidence of this rare condition We will discharge her home if in a stable condition [id number] DEBBIE CASTELLANOS MD May 26, 2016 18:10
[2016-05-27 04:31] VITALS: BP 94/56; PULSE 66; RESP 18
[2016-05-27 08:10] VITALS: BP 99/69; PULSE 68; RESP 18
--- NOTE | 2016-05-27 15:46 | QN ---
Documentation Comment Patient denies any depressive symptoms. Started breast-feeding. Vaginal bleeding like heavy menses. Ambulated. Denies any complaint. Physical examination: GA: A&O, NAD Abdomen: soft, non tender, fundus firm and nontender at the level of umbilicus Extremities: No calf tenderness, no click no edema Breasts: No engorgement no tenderness no erythema no evidence of mastitis or fissure Hematology - 72 Hrs Test 05/25/16 03:40 05/26/16 12:45 White Blood Count 12.510^3/ul (4.8-10.8) H 14.310^3/ul (4.8-10.8) H Red Blood Count 4.0110^6/ul (4.20-5.40) L 3.5810^6/ul (4.20-5.40) L Hemoglobin 11.5g/dl (12.0-16.0) L 10.6g/dl (12.0-16.0) L Hematocrit 35.1% (37.0-47.0) L 31.4% (37.0-47.0) L Mean Corpuscular Volume 87.5fl (82.0-101.0) 87.7fl (82.0-101.0) Mean Corpuscular Hemoglobin 28.7pg (29.0-33.0) L 29.6pg (29.0-33.0) Mean Corpuscular Hemoglobin Concent 32.8g/dl (32.0-37.0) 33.8g/dl (32.0-37.0) Red Cell Distribution Width 12.6% (11.5-14.5) 12.9% (11.5-14.5) Platelet Count 39413^3/UL (140-415) 17788^3/UL (140-415) # Mean Platelet Volume 10.9fl (7.4-10.4) H 10.4fl (7.4-10.4) Neutrophils % 84.6% (39.0-77.0) H 80.6% (39.0-77.0) H Lymphocytes % 9.7% (15.0-51.0) L 14.2% (15.0-51.0) L Monocytes % 5.0% (0.0-11.0) 3.8% (0.0-11.0) Eosinophils % 0.1% (0.0-7.0) 0.8% (0.0-7.0) Basophils % 0.2% (0.0-2.0) 0.2% (0.0-2.0) Nucleated Red Blood Cells % 0.0/100WBC (0.0-0.0) 0.0/100WBC (0.0-0.0) Neutrophils # 10.610^3/ul (1.6-7.5) H 11.510^3/ul (1.6-7.5) H Lymphocytes # 1.210^3/ul (0.8-2.9) 2.010^3/ul (0.8-2.9) Monocytes # 0.610^3/ul (0.3-0.9) 0.610^3/ul (0.3-0.9) Eosinophils # 0.010^3/ul (0.0-0.5) 0.110^3/ul (0.0-0.5) Basophils # 0.010^3/ul (0.0-0.1) 0.010^3/ul (0.0-0.1) Nucleated Red Blood Cells # 0.010^3/ul (0.0-0.0) 0.010^3/ul (0.0-0.0) Chemistry Test 05/25/16 03:40 05/26/16 12:45 Sodium Level 137mmol/L (135-144) 135mmol/L (135-144) Potassium Level 3.7mmol/L (3.5-5.1) 3.5mmol/L (3.5-5.1) Chloride Level 104mmol/L (97-110) 102mmol/L (97-110) Carbon Dioxide Level 22mmol/L (21-31) 23mmol/L (21-31) Anion Gap 15 (8-16) 14 (8-16) Blood Urea Nitrogen 10mg/dl (7-20) 9mg/dl (7-20) Creatinine 0.42mg/dl (0.44-1.00) L 0.41mg/dl (0.44-1.00) L Glucose Level 98mg/dl (70-220) 112mg/dl (70-220) Calcium Level 8.8mg/dl (8.4-10.2) 8.3mg/dl (8.4-10.2) L Total Bilirubin 0.3mg/dl (0.2-1.3) 0.3mg/dl (0.2-1.3) Direct Bilirubin 0.00mg/dl (0.00-0.20) 0.00mg/dl (0.00-0.20) Indirect Bilirubin 0.3mg/dl (0-1.1) 0.3mg/dl (0-1.1) Aspartate Amino Transf (AST/SGOT) 21IU/L (15-46) 26IU/L (15-46) Alanine Aminotransferase (ALT/SGPT) 16IU/L (13-69) 17IU/L (13-69) Alkaline Phosphatase 170IU/L (42-121) H 132IU/L (42-121) H Total Protein 7.2g/dl (6.1-8.1) 6.3g/dl (6.1-8.1) Albumin 3.6g/dl (3.3-4.9) 3.0g/dl (3.3-4.9) L Globulin 3.60g/dl (1.3-3.2) H 3.30g/dl (1.3-3.2) H Albumin/Globulin Ratio 1.00 0.90 Magnesium Level 1.8mg/dl (1.7-2.5) Assessment: day #2 Status post Mild anemia asymptomatic History of cardiac problem, asymptomatic Patient has not been on any medication She denies any symptoms. She had been observed in ICU couple hours after the procedure Currently asymptomatic. Met the criteria for discharge Will discharge home Follow-up in about 2 weeks with her personal consultant in 6 weeks for check with her private clay press operator recommended ERMA ROSARIO MD May 27, 2016 15:46
--- NOTE | 2016-05-27 15:52 | DS ---
Date/Time of Note Date/Time of Note DATE: 05/27/16 TIME: 15:48 Discharge Summary Admission/Discharge Info Admit Date/Time May 25, 2016 at 03:10 Discharge Date/Time May 27, 2016 at 15:30 Final Diagnosis (Scimitar's Syndrome) Patient Condition: Good Consults Medicine/cardiology Procedures Observation NICU due to (Scimitar's Syndrome): Hx of Present Illness Patient is a 25-year-old with term who presented in labor and had uncomplicated vaginal delivery. Her past medical history significant for history of (Scimitar's Syndrome): Currently asymptomatic. Patient reports her only symptoms are those of airway inflammation intermittently diann in the summer months as evidenced by chest pain, SOB and wheezing and these symptoms are usually relieved with the use of bronchodilator therapy. She hasn't had an episode in months. She denies active CP at this time , denies headaches, nausea or vomiting. has never had CHF or arrhythmias associated with this to her knowledge. She had been observed after an uncomplicated delivery in ICU for one day and was noted to be stable and discharged to floor. Her hospital course was non-complicated. She had not completed vaginal delivery. She did well . On day #2 patient was noted to be stable enough to be discharged home. She was ambulating. Tolerated regular diet. She was breast-feeding. Denies any symptoms. She denied any short shortness of breath chest pain dizziness lightheadedness or depressive symptoms. She was discharged home in stable condition with a follow-up in 1-2 weeks with her welt beater in 6 weeks with her primary OB Hospital Course 1. 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 IUP @ 39+ weeks s/p successful delivery (Post delivery day 1) RECOMMENDATIONS: * Continue routine post delivery mgt * OK to transfer back to post floor if ok with cardio * Supportive care Thanks for the Consult. We will follow with you. Home Meds Discontinued Reported Medications [none] Unknown Strength No Conflict Check 03/17/15 Discontinued Scripts Ibuprofen* (Motrin*) 600 Mg Tab, 600 MG PO Q6, #30 TAB Prov:CONNER MACHUCA 03/18/15 Follow-up Plan In 1-2 weeks with cardiology in 6 weeks with her private OB ERMA ROSARIO MD May 27, 2016 15:52
== END 2016-05-27 15:30 | disposition home or self-care (01) | DRG 774 ==
LOC: OBT 02:31 → L-D 02:32 → OBT 03:10 → L-D 17:29 → ICU 18:46 → PP1 05-26 15:02
PROVIDERS: ADMIT Obstetrics & Gynecology; ATTEND Obstetrics & Gynecology
PROC: 10D07Z6 Extraction of Products of Conception, Vacuum, Via Natural or Artificial Opening (ICD-10-PCS; principal; 2016-05-25)
PROC: 0KQM0ZZ Repair Perineum Muscle, Open Approach (ICD-10-PCS; 2016-05-25)
PROC: 4A033R1 Measurement of Arterial Saturation, Peripheral, Percutaneous Approach (ICD-10-PCS; 2016-05-25)
DX: O99.42 Diseases of the circulatory system complicating childbirth (principal); Q26.8 Other congenital malformations of great veins; I50.9 Heart failure, unspecified; O99.03 Anemia complicating the puerperium; O69.81X0 Labor and delivery complicated by cord around neck, without compression, not applicable or unspecified; O70.1 Second degree perineal laceration during delivery; O75.4 Other complications of obstetric surgery and procedures; Z3A.39 39 weeks gestation of pregnancy; Z37.0 Single live birth
CPT/HCPCS: 36415; 36600; 62319; 76815; 80053; 80307; 81001; 81003; 82803; 83735; 85025; 85610; 85730; 86592; 86703; 86762; 86900; 86901; 87340; 99464; G0463; J0290; J2590; J3010; J7120